=== PATIENT | male | born 1970 | race Two or more races ===

== ENCOUNTER 2019-08-19 12:18 | Emergency (ER) | payer OTHER ==
[~2019-08-19] VITALS: Ht 190.5 cm; Wt 104.8 kg
[2019-08-19] MEDS ORDERED: LEVOTHYROXINE25 MCG (12:24)
== END 2019-08-19 18:23 | disposition home or self-care (01) ==
LOC: ER 12:18
DX: N20.1 Calculus of ureter (principal); R10.32 Left lower quadrant pain

== ENCOUNTER 2019-08-20 07:00 | Day surgery (SDC) | payer OTHER ==
[~2019-08-20] VITALS: Ht 190.5 cm; Wt 104.3 kg
[~2019-08-20 07:00] MED LIST: LEVOTHYROXINE25 MCG
== END 2019-08-21 08:00 | disposition home or self-care (01) ==
LOC: CIR.AMB 07:00 → ER 19:29 → SEC-K 20:34 → SURG 20:34 → SEC-K 21:23 → SURG 21:23 → EDSTATUS 08-21 07:00 → CIR.AMB 08-21 08:00 → SURG 08-21 14:44
PROVIDERS: ATTEND Specialist
DX: N20.1 Calculus of ureter (principal)

== ENCOUNTER 2020-02-08 10:10 | Inpatient (IN) | payer OTHER ==
[~2020-02-08] VITALS: Ht 190.5 cm; Wt 250.0 kg
--- NOTE | 2020-02-08 10:39 | NUR ---
PTE REFIERE MARCELO DOLOR ABDOMINAL SE SRIKANTH S/V YS EUBIAC EN AREA DE OBSERVACION
--- NOTE | 2020-02-08 12:18 | NUR ---
SE RECIBE PTE MASCULINO DE 49 YRS ALERTA CONCIENTE Y TRANQUILO EN COMOPANIA DE FAMILIAR. PTE ES EVALUADO POR EL , RENTA QUIEN ORDENA TRATAMIENTO LA CUAL SE EJECUTA/ SE LE COMIENZA EN ANTIBIOTOCOS Y SE ORIENTA DE NO INGERIR ALIMENTOS
== END 2020-02-11 13:29 | disposition home or self-care (01) | DRG 343 ==
LOC: ER 10:10 → SURG 12:00 → O/R 12:00 → SURG 19:21
PROVIDERS: ADMIT Surgery; ATTEND Surgery
PROC: BW21ZZZ Computerized Tomography (CT Scan) of Abdomen and Pelvis (ICD-10-PCS; 2020-02-08)
PROC: 0DTJ4ZZ Resection of Appendix, Percutaneous Endoscopic Approach (ICD-10-PCS; principal; 2020-02-08 17:00)
DX: K35.890 Other acute appendicitis without perforation or gangrene (principal); E03.9 Hypothyroidism, unspecified; Z20.828 Contact with and (suspected) exposure to other viral communicable diseases; G47.39 Other sleep apnea

== ENCOUNTER 2022-07-08 02:24 | Emergency (ER) | payer OTHER ==
[~2022-07-08] VITALS: Ht 190.5 cm; Wt 113.4 kg
[~2022-07-08 02:24] MED LIST changes: -LEVOTHYROXINE25 MCG; +LEVOTHYROXINE25 MCG PO
== END 2022-07-08 06:01 | disposition home or self-care (01) ==
LOC: ER 02:24
DX: J06.9 Acute upper respiratory infection, unspecified (principal); Z20.822 Contact with and (suspected) exposure to COVID-19

== ENCOUNTER 2023-08-23 22:56 | Emergency (ER) | payer OTHER ==
[~2023-08-23] VITALS: Ht 167.6 cm; Wt 77.1 kg
[2023-08-24 03:56] LABS: HEMATOCRIT 43.4 % (39.0-48.0); HEMOGLOBIN 14.7 g/dL (13-16.00); MEAN CELL VOLUME 83.6 fL (80.0-100.00); MEAN CORPUSCULAR HEMOGLOBIN 28.3 pg (27.00-32.0); MEAN CORPUSCULAR HGB CONC 33.8 g/dl (32.0-36.0); PLATELET COUNT 261 K/uL (150-450); RED BLOOD COUNT 5.19 M/uL (4.00-6.00)
[2023-08-24] MEDS ORDERED: CLINDAMYCIN PHOSPHATE 150 MG/ML (600mg) IM STA (04:44)
[2023-08-24] MEDS ORDERED: CLINDAMYCIN PHOSPHATE 150 MG/ML (300mg) ONE (04:52)
== END 2023-08-24 04:59 | disposition home or self-care (01) ==
LOC: ER 22:57
DX: J06.9 Acute upper respiratory infection, unspecified (principal); Z88.0 Allergy status to penicillin; Z20.822 Contact with and (suspected) exposure to COVID-19